=== PATIENT | female | born 1965 | race Caucasian/White ===

== ENCOUNTER 2018-02-26 05:40 | Emergency (ER) | payer BC ==
[2018-02-27] MEDS ORDERED: Diphtheria,Pertussis(Acell),Tetanus Vaccine 0.5 ML SDV IM ONE (05:57)
--- NOTE | 2018-02-27 05:58 | EDM.PDOC ---
ED HPI GENERAL MEDICAL PROBLEM - General Chief Complaint: Head Injury Stated Complaint: FELL HIT HEAD 10:30PM 02/26 [id number] Time Seen by Provider: 02/27/18 05:53 Source of Information: Reports: Patient History Limitations: Reports: No Limitations - History of Present Illness INITIAL COMMENTS - FREE TEXT/NARRATIVE: tripped and fell onto cement unable to recall event, occurred last night, denies N/V. has bad headache & keeps bleeding. now feels nauseous Right Head Pain Score (Numeric/FACES): 10 - Related Data Allergies Allergy/AdvReac Type Severity Reaction Status Date / Time No Known Allergies Allergy Verified 07/14/14 05:40 Home Meds: Home Meds Aspirin/Calcium Carbonate/Mag [Aspirin Buffered 325 mg Tab] 325 mg PO DAILY [History] Lisinopril 40 mg PO DAILY 07/14/14 [History] Metoprolol Tartrate 25 mg PO BID 07/14/14 [History] Omeprazole Magnesium [Prilosec Otc] 20 mg PO DAILY 07/14/14 [History] Pravastatin [Pravachol] 40 mg PO BEDTIME 07/14/14 [History] ED ROS GENERAL - Review of Systems Review Of Systems: ROS reveals no pertinent complaints other than HPI. ED EXAM, HEAD INJURY - Physical Exam Exam: See Below Exam Limited By: No Limitations General Appearance: Alert, WD/WN, Mild Distress, Other (distraught) Head: Scalp Lacerations. No: Barton's Sign, Raccoon Eyes Eyes: Bilateral Eye: PERRL (pupils ER @ 4mm) Ears: Hearing Grossly Normal Nose: Normal Inspection Throat/Mouth: Normal Voice, No Airway Compromise Neck: Non-Tender, Full Range of Motion Respiratory: No Respiratory Distress Cardiovascular: Regular Rate, Rhythm GI/Abdominal Exam: Soft, Non-Tender Neurologic: No Motor/Sensory Deficits, Alert, Normal Mood/Affect, Oriented x 3 Skin: Normal Color, Warm/Dry - Tabitha Coma Score Best Eye Response ([place]itha): (4) Open Spontaneously Best Verbal Response ([place]): (5) Oriented Best Motor Response ([place]): (6) Obeys Commands [place] Total: 15 ED LACERATION/WOUND & JASPER PROC - Laceration/Wound Repair Head Lac/wound length in cm: 2 (spfl gourge) Appearance: Superficial, Linear, Clean Skin Prep: Chlorhexidine (Hibiciens) Exploration/Debridement/Repair: Wound Explored, In a Bloodless Field, No Foreign Material Found Closed with: Dermabond Sterile Dressing Applied: None Tetanus Status Addressed: Yes Complications: No Course - Vital Signs Last Recorded V/S: Last Vital Signs Temp 36.6 C 02/27/18 05:45 Pulse 80 02/27/18 05:45 Resp 18 02/27/18 05:45 BP 212/110 H 02/27/18 05:45 Pulse Ox 97 02/27/18 05:45 - Orders/Labs/Meds Orders: Active Orders 24 hr Category Date Time Status Vaccines to be Administered [RC] PER UNIT ROUTINE Care 02/27/18 05:57 Active Head wo Cont [CT] Urgent Exams 02/27/18 06:04 Taken Meds: Medications Discontinued Medications Generic Name Dose Route Start Last Admin Trade Name Yung PRN Reason Stop Dose Admin Diphtheria/Tetanus/Acell Pertussis 0.5 ml 02/27/18 05:57 02/27/18 06:07 Adacel IM 02/27/18 05:58 0.5 ml .ONCE ONE Administration Ondansetron HCl 4 mg 02/27/18 06:00 02/27/18 06:07 Zofran Odt PO 02/27/18 06:01 4 mg ONETIME ONE Administration - Re-Assessments/Exams Free Text/Narrative Re-Assessment/Exam: 02/27/18 07:01 results discussed with pt who is having headache. Departure - Departure Time of Disposition: 07:02 Disposition: Home, Self-Care 01 Condition: Good Clinical Impression: Concussion with less than 1 hour loss of consciousness Laceration of scalp without complication Qualifiers: Encounter type: initial encounter Qualified Code(s): S01.01XA - Laceration without foreign body of scalp, initial encounter - Discharge Information Instructions: Head Injury, Adult, [id number] Forms: ED Department Discharge Additional Instructions: 1) rest as much as possible 2) ice to scalp swelling 3) recheck if there is any change or concern 4) try tylenol or motrin for pain 5) follow up at clinic - My Orders Last 24 Hours: My Active Orders 02/27/18 05:57 Vaccines to be Administered [RC] PER UNIT ROUTINE 02/27/18 06:04 Head wo Cont [CT] Urgent - Assessment/Plan Last 24 Hours: My Active Orders 02/27/18 05:57 Vaccines to be Administered [RC] PER UNIT ROUTINE 02/27/18 06:04 Head wo Cont [CT] Urgent
[2018-02-27] MEDS ORDERED: Ondansetron 4 MG Tab.DIS PO ONE (06:00)
[2018-02-27] MEDS ORDERED: Acetaminophen/HYDROcodone 325-10 MG Tab PO ONE (07:01)
== END 2018-02-27 07:17 | disposition home or self-care (01) ==
LOC: DL.ED 02-27 05:40
DX: S06.0X9A Concussion with loss of consciousness of unspecified duration, initial encounter (principal); S01.01XA Laceration without foreign body of scalp, initial encounter; Z23 Encounter for immunization; Z79.82 Long term (current) use of aspirin; Z79.899 Other long term (current) drug therapy; W01.198A Fall on same level from slipping, tripping and stumbling with subsequent striking against other object, initial encounter
CPT/HCPCS: 12001; 70450; 90471; 90715; 99284; A9270

== ENCOUNTER 2021-10-23 06:21 | Emergency (ER) | payer SELFPAY ==
[2021-10-23] MEDS ORDERED: Codeine/Promethazine 10-6.25 MG/5 ML Syrup 5 ML UD Cup PO ONE (07:14)
[2021-10-23] MEDS ORDERED: Albuterol/Ipratropium 3.0-0.5 MG/3 ML Neb Soln NEB ONE (07:14)
[2021-10-23 07:30] LABS: ANION GAP 10.7 mEq/L (7-13); CHLORIDE,CL 102 mmol/L (98-107); SODIUM,NA 136 mmol/L (136-145)
[2021-10-23 07:33] LABS: CORONAVIRUS COVID-19 NAA NEGATIVE (NEGATIVE)
[2021-10-23] MEDS ORDERED: Metoprolol Tartrate 50 MG Tab PO ONE (07:35)
[2021-10-23] MEDS ORDERED: Furosemide 20 MG Tab PO ONE (07:36)
[2021-10-23] MEDS ORDERED: Lisinopril 20 MG Tab PO ONE (07:36)
[2021-10-23] MEDS ORDERED: Isosorbide Mononitrate 30 MG Tab.ER PO ONE (07:37)
[2021-10-23] MEDS ORDERED: Furosemide 100 MG/10 ML SDV IVPUSH ONE (07:42)
== END 2021-10-23 09:15 | disposition home or self-care (01) ==
LOC: DL.ED 06:21
DX: I11.0 Hypertensive heart disease with heart failure (principal); I50.9 Heart failure, unspecified; I25.2 Old myocardial infarction; J44.9 Chronic obstructive pulmonary disease, unspecified; E78.00 Pure hypercholesterolemia, unspecified; J98.01 Acute bronchospasm; F17.210 Nicotine dependence, cigarettes, uncomplicated; Z20.822 Contact with and (suspected) exposure to COVID-19; Z79.899 Other long term (current) drug therapy
CPT/HCPCS: 0240U; 36415; 71046; 80053; 82150; 83605; 83690; 83735; 83880; 84484; 85025; 85379; 93005; 96374; 99285-25; A9270-GY; J1940; J7620-GY

== ENCOUNTER 2025-05-06 10:07 | Emergency (ER) | payer MEDICARE, MEDICAID ==
[2025-05-06] MEDS ORDERED: Sodium Chloride 0.9% 10 ML Syringe FLUSH PRN (10:12)
[2025-05-06 10:25] LABS: BASOPHILS PERCENT AUTO 0.3 % (0.0-1.0); EOSINOPHILS PERCENT AUTO 1.2 % (1.0-3.0); LYMPHOCYTES PERCENT AUTO 9.8 % (20.5-50.1); MONOCYTES PERCENT AUTO 5.8 % (2-8); NEUTROPHILS PERCENT AUTO 82.9 % (42.2-75.2); PLATELET COUNT,PLT 347 10^3/uL (150-450); RED BLOOD CELL COUNT 4.28 10^6/uL (4.2-5.4); WHITE BLOOD CELL COUNT,WBC 12.8 10^3/uL (5.0-10.0)
[2025-05-06] MEDS: Furosemide 40 MG/4 ML VIAL IVPUSH ONE (10:42)
[2025-05-06 10:51] LABS: B-TYPE NATRIURETIC PEPTIDE,BNP 353.0 pg/ml (0-100)
[2025-05-06 10:55] LABS: INR 1.0 (0.9-1.2); PTT,PARTIAL THROMBOPLSTIN TIME 24.8 SEC (22.0-34.0)
[2025-05-06 10:59] LABS: ALANINE AMINOTRANSFERASE,ALT 26.0 U/L (14-59); ASPARTATE AMNIOTRANSFERASE,AST 20.0 U/L (15-37); BILIRUBIN TOTAL 1.1 mg/dL (0.2-1.0); BLOOD UREA NITROGEN,BUN 17.0 mg/dL (7-18); CARBON DIOXIDE,CO2 32.0 mmol/L (21-32); CHLORIDE,CL 96.0 mmol/L (98-107); CREATININE 1.18 mg/dL (0.55-1.02); EST CRCL DRUG DOSING (CG) 54.83 mL/min; GLUCOSE RANDOM 102.0 mg/dL (70-99); POTASSIUM,K 3.4 mmol/L (3.5-5.1); PROTEIN TOTAL,TP 6.6 g/dL (6.4-8.2); SODIUM,NA 133.0 mmol/L (136-145)
[2025-05-06 11:00] LABS: A/G RATIO 0.83; ESTIMATED GFR 53.0 mL/min (>=60); LACTIC ACID 1.7 mmol/L (0.4-2.0)
[2025-05-06] MEDS: Potassium Chloride 10 MEQ Tab.ER PO ONE (11:17)
[2025-05-06] MEDS: Amiodarone 360 MG/200 ML 360 MG/200 ML BAG IV ONE (12:27)
[2025-05-06] MEDS: Amiodarone 150 MG/3 ML SDV IVPUSH ONE (12:27)
== END 2025-05-06 13:04 ==
LOC: DL.ED 10:07
DX: I48.91 Unspecified atrial fibrillation (principal); I47.20 Ventricular tachycardia, unspecified; I11.0 Hypertensive heart disease with heart failure; I50.9 Heart failure, unspecified; I25.10 Atherosclerotic heart disease of native coronary artery without angina pectoris; J44.9 Chronic obstructive pulmonary disease, unspecified; I25.2 Old myocardial infarction; Z95.5 Presence of coronary angioplasty implant and graft; K21.9 Gastro-esophageal reflux disease without esophagitis; Z79.82 Long term (current) use of aspirin; Z79.51 Long term (current) use of inhaled steroids; Z79.899 Other long term (current) drug therapy
CPT/HCPCS: 36415; 71045; 80053; 83605; 83735; 83880; 84484; 85025; 85610; 85730; 93005; 93010; 96365; 96375; 99285; A9270; J0282; J0283; J1160; J1938